=== PATIENT | female | born 1995 | race Caucasian/White ===

== ENCOUNTER 2017-08-13 17:39 | Emergency (ER) | payer OTHER ==
[~2017-08-13] VITALS: Ht 165.1 cm; Wt 52.6 kg
[~2017-08-13 17:39] MED LIST: HYDACE5 PO; TOBR.3OPSO OP
== END 2017-08-13 18:46 | disposition home or self-care (01) ==
LOC: ER 17:39
DX: S20.211A Contusion of right front wall of thorax, initial encounter (principal); F17.210 Nicotine dependence, cigarettes, uncomplicated; Z91.040 Latex allergy status; V47.5XXA Car driver injured in collision with fixed or stationary object in traffic accident, initial encounter
CPT/HCPCS: 71101; 81000; 81025; 99283